=== PATIENT | male | born 1990 | race Caucasian/White ===

== ENCOUNTER 2016-09-28 19:08 | Emergency (ER) | payer SELFPAY ==
[~2016-09-28] VITALS: Ht 175.3 cm; Wt 136.1 kg
[~2016-09-28 19:08] MED LIST: CYCLOBENZAPRINE10 MG PO; IBUPROFEN800 MG PO; NORCO 5-325 TA1 EACH PO
[2016-09-29] MEDS ORDERED: GUAIFENESIN AC473 ML PO (01:53)
== END 2016-09-28 19:33 | disposition left against medical advice (07) ==
LOC: ED 19:08
DX: Z53.21 Procedure and treatment not carried out due to patient leaving prior to being seen by health care provider (principal)

== ENCOUNTER 2016-09-29 01:03 | Emergency (ER) | payer SELFPAY ==
[~2016-09-29] VITALS: Ht 381 cm; Wt 134.7 kg
[2016-09-29] MEDS ORDERED: GUAIFENESIN AC473 ML PO (01:53)
== END 2016-09-29 02:08 | disposition home or self-care (01) ==
LOC: ED 01:03
DX: J20.9 Acute bronchitis, unspecified (principal); J45.909 Unspecified asthma, uncomplicated
CPT/HCPCS: 99283

== ENCOUNTER 2017-09-19 20:25 | Emergency (ER) | payer MEDICAID ==
[~2017-09-19] VITALS: Ht 381 cm; Wt 136.1 kg
[~2017-09-19 20:25] MED LIST changes: +GUAIFENESIN AC473 ML PO
[2017-09-19] MEDS ORDERED: GUAIFENESIN AC473 ML PO (22:05)
== END 2017-09-19 22:17 | disposition home or self-care (01) ==
LOC: ED 20:25
DX: J98.8 Other specified respiratory disorders (principal); B97.89 Other viral agents as the cause of diseases classified elsewhere
CPT/HCPCS: 71046; 99283

== ENCOUNTER 2022-01-02 21:02 | Emergency (ER) | payer OTHER ==
[~2022-01-02] VITALS: Ht 175.3 cm; Wt 156.0 kg
--- OUTSIDE RECORDS SUMMARY | 2022-01-02 21:11 | XMS ---
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 Jatinder has no Care Guidelines for this patient. Narda VISIT COUNT (12 MO.) 1 [facility] Salazar TOTAL 1 NOTE: Visits indicate total known visits. ED/C VISIT TRACKING (12 MO.) 01/02/2022 21:03 [facility] [place] TYPE: Emergency COMPLAINT: - THUMB LACERATION INPATIENT VISIT TRACKING (12 MO.) No inpatient visits to display in this time frame [id number]
== END 2022-01-03 00:08 | disposition home or self-care (01) ==
LOC: ED 21:02
DX: S61.012A Laceration without foreign body of left thumb without damage to nail, initial encounter (principal); W26.0XXA Contact with knife, initial encounter; Z23 Encounter for immunization
CPT/HCPCS: 90715

== ENCOUNTER 2022-11-28 20:46 | Emergency (ER) | payer OTHER ==
[~2022-11-28] VITALS: Ht 175.3 cm; Wt 157.8 kg
--- OUTSIDE RECORDS SUMMARY | ~2022-11-28 | XMS | Continuity of Care Document ---
Demographics + + + | Address | [address] | | | [place] [address] | + + + | Preferred Language | Unknown | + + + | Marital Status | | + + + | Buddhism Affiliation | Unknown | + + + | Race | White | + + + | Ethnic Group | Not or | + + + Author + + + | Author | [facility] | + + + | Organization | [facility] | + + + | Address | [address] | | | [place] [address] | + + + | Phone | | + + + Care Team Providers + + + + | Care Pool Hand Name | Role | Phone | + + + + Unavailable | Unavailable | + + + + Unavailable | Unavailable | + + + + Allergies No information. Encounters No information. Functional Status No information. Immunizations + + + + | date | description | facility | + + + + | 2022-01-02 00:00 | Tdap | [facility] | + + + + Medications No information. Problems + + + + | date | description | facility | + + + + | 2015-03-02 00:00 | Strain of left knee and | [facility] | | | leg | | + + + + | 2015-03-02 00:00 | Ankle sprain | [facility] | + + + + | 2015-03-02 00:00 | Strain of left foot | [facility] | + + + + | 2016-09-28 00:00 | Patient left without being | [facility] | | | seen | | + + + + | 2016-09-29 00:00 | Acute bronchitis | [facility] | + + + + | 2017-09-19 00:00 | Viral respiratory | [facility] | | | infection | | + + + + Procedures No information. Results/Labs No information. Social History No information. Vital Signs + + + +---------+ | date | measurement | value | units | + + + +---------+ | 2022-01-02 00:00 | BMI | 50.8 | kg/m2 | + + + +---------+ | 2022-01-02 00:00 | height_metric | 175.26 | cm | + + + +---------+ | 2022-01-02 00:00 | height_standard | 69 | in | + + + +---------+ | 2022-01-02 00:00 | weight_metric | 156.04 | kg | + + + +---------+ | 2022-01-02 00:00 | weight_standard | 344 | lb | + + + +---------+ | 2022-01-03 00:00 | BP_diastolic | 97 | mmHg | + + + +---------+ | 2022-01-03 00:00 | BP_systolic | 130 | mmHg | + + + +---------+ | 2022-01-03 00:00 | heart_rate | 62 | /min | + + + +---------+ | 2022-01-03 00:00 | o2_saturation | 96 | % | + + + +---------+ | 2022-01-03 00:00 | respiration_rate | 16 | /min | + + + +---------+ | 2022-01-03 00:00 | temperature_metric | 36.61 | C | | | | | | + + + +---------+ | 2022-01-03 00:00 | | 97.9 | F | | | temperature_standar | | | | | d | | | + + + +---------+"
--- OUTSIDE RECORDS SUMMARY | ~2022-11-28 | XMS | Continuity of Care Document ---
Demographics + + + | Address | [address] | | | [place] [address] | + + + | Preferred Language | Unknown | + + + | Marital Status | | + + + | Congregation Affiliation | Unknown | + + + | Race | White | + + + | Ethnic Group | Not or | + + + Author + + + | Author | [facility] | + + + | Organization | [facility] | + + + | Address | [address] | | | [place] [address] | + + + | Phone | | + + + Care Team Providers + + + + | Care Outdoor Guide Name | Role | Phone | + + + + Unavailable | Unavailable | + + + + Unavailable | Unavailable | + + + + Allergies No information. Encounters No information. Functional Status No information. Immunizations + + + + | date | description | facility | + + + + | 2022-01-02 00:00 | Tdap | [facility] | + + + + Medications No information. Problems + + + + | date | description | facility | + + + + | 2015-03-02 00:00 | Strain of left knee and | [facility] | | | leg | | + + + + | 2015-03-02 00:00 | Ankle sprain | [facility] | + + + + | 2015-03-02 00:00 | Strain of left foot | [facility] | + + + + | 2016-09-28 00:00 | Patient left without being | [facility] | | | seen | | + + + + | 2016-09-29 00:00 | Acute bronchitis | [facility] | + + + + | 2017-09-19 00:00 | Viral respiratory | [facility] | | | infection | | [...]
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
[2022-11-28 21:37] LABS: INFLUENZA B NAA NEGATIVE (NEGATIVE); RESPIRATORY SYNCYTIAL VIR NAA NEGATIVE (NEGATIVE)
[2022-11-28 21:48] VITALS: BP 139/103
== END 2022-11-28 21:45 | disposition home or self-care (01) ==
LOC: ED 20:46
PROVIDERS: Emergency Medicine
DX: J06.9 Acute upper respiratory infection, unspecified (principal); B97.89 Other viral agents as the cause of diseases classified elsewhere; J45.909 Unspecified asthma, uncomplicated; Z20.822 Contact with and (suspected) exposure to COVID-19
CPT/HCPCS: 87502; 99283; C9803; U0002